=== PATIENT | male | born 1970 | race Two or more races ===

== ENCOUNTER 2017-09-07 11:23 | Emergency (ER) | payer SELFPAY ==
[~2017-09-07] VITALS: Ht 177.8 cm; Wt 94.0 kg
[2017-09-07 11:26] VITALS: BP 126/77
[2017-09-07] MEDS ORDERED: FLUORESCEIN OPHTHALMIC 1 MG STRIP ONE (12:45)
[2017-09-07] MEDS ORDERED: PROPARACAINE OPHTH 0.5%, 15ML ONE (12:45)
== END 2017-09-07 13:35 | disposition home or self-care (01) ==
LOC: ED 13:23
DX: H00.015 Hordeolum externum left lower eyelid (principal)
CPT/HCPCS: 99283

== ENCOUNTER 2019-12-29 09:44 | Emergency (ER) | payer SELFPAY ==
[~2019-12-29] VITALS: Ht 175.3 cm; Wt 96.7 kg
[2019-12-29 10:11] VITALS: BP 127/80
[2019-12-29] MEDS ORDERED: PROPARACAINE OPHTH 0.5%, 15ML ONE (10:33)
[2019-12-29] MEDS ORDERED: FLUORESCEIN OPHTHALMIC 1 MG STRIP ONE (10:33)
[2019-12-29] MEDS ORDERED: HYDROcodone/APAP 5/325 TABLET ONE (10:49)
[2019-12-29] MEDS ORDERED: HYDROcodone/APAP 5/325 TABLET PO ONE (11:00)
--- NOTE | 2019-12-29 11:15 | NUR ---
Patient/Caregiver given discharge instructions and they have confirmed that they understand the instructions. Patient ambulatory with steady gait.
== END 2019-12-29 11:17 | disposition home or self-care (01) ==
LOC: ED 10:32
DX: H57.12 Ocular pain, left eye (principal); H53.8 Other visual disturbances; E11.9 Type 2 diabetes mellitus without complications; Z90.49 Acquired absence of other specified parts of digestive tract
CPT/HCPCS: 82962; 99283

== ENCOUNTER 2019-12-31 20:55 | Emergency (ER) | payer SELFPAY ==
[~2019-12-31] VITALS: Ht 177.8 cm; Wt 94.2 kg
[2019-12-31 21:01] VITALS: BP 141/84
[2019-12-31] MEDS ORDERED: HYDROcodone/APAP 5/325 TABLET PO ONE (21:30)
[2019-12-31] MEDS ORDERED: HYDROcodone/APAP 5/325 TABLET ONE (21:59)
== END 2019-12-31 22:46 | disposition home or self-care (01) ==
LOC: ED 22:44
DX: B00.52 Herpesviral keratitis (principal); B02.30 Zoster ocular disease, unspecified; E11.9 Type 2 diabetes mellitus without complications
CPT/HCPCS: 99283

== ENCOUNTER 2021-01-21 22:39 | Emergency (ER) | payer OTHER ==
[~2021-01-21] VITALS: Ht 175.3 cm; Wt 93.3 kg
[2021-01-21 23:23] LABS: BASOPHILS % (AUTO) 1 % (0-1); EOSINOPHILS % (AUTO) 0 % (1-7); LYMPHOCYTES % (AUTO) 26 % (22-44); MEAN CORPUSCULAR HEMOGLOBIN 31.1 pg (27.5-34.5); MEAN CORPUSCULAR HGB CONC 35.6 g/dL (33.2-36.2); MEAN PLATELET VOLUME 8.8 fL (7.4-10.4); MONOCYTES % (AUTO) 12 % (2-9); NEUTROPHILS % (AUTO) 60 % (42-75); PLATELET COUNT 145 x10^3/uL (130-400); RED BLOOD COUNT 4.92 x10^6/uL (4.38-5.82); RED CELL DISTRIBUTION WIDTH 13.2 % (9.4-14.8)
[2021-01-21 23:31] LABS: ALBUMIN 3.3 g/dL (3.4-5.0); ANION GAP 7 mmol/L (5-15); CALCIUM 8.3 mg/dL (8.5-10.1); CHLORIDE 101 mmol/L (98-107)
[2021-01-21 23:36] LABS: ALANINE AMINOTRANSFERASE 26 U/L (12-78); ALKALINE PHOSPHATASE 100 U/L (45-117); BILIRUBIN,TOTAL 0.5 mg/dL (0.2-1.0); CREATININE 0.88 mg/dL (0.7-1.3); TOTAL PROTEIN 7.6 g/dL (6.4-8.2)
--- NOTE | 2021-01-22 02:03 | NUR ---
Patient given discharge instructions and they have confirmed that they understand the instructions. Patient ambulatory with steady gait. NAD, all questions answered appropriately, denies additional needs at this time. No personal belongings left in room after discharge.
[2021-01-22 02:04] VITALS: BP 135/79
== END 2021-01-22 02:08 | disposition home or self-care (01) ==
LOC: ED 23:59
DX: M79.661 Pain in right lower leg (principal); M79.662 Pain in left lower leg; R20.2 Paresthesia of skin; E11.65 Type 2 diabetes mellitus with hyperglycemia
CPT/HCPCS: 36415; 80053; 82962; 85025; 93005; 93970; 99285